=== PATIENT | male | born 1960 | race Caucasian/White ===

== ENCOUNTER 2021-05-15 08:08 | Inpatient (IN) | payer BC, MEDICAID, SELFPAY ==
[2021-05-15] VITALS (8 sets, daily range): BP systolic 132–165; BP diastolic 65–101; PULSE 84–102; RESP 15–20; TEMP 36.4–37.7; O2SAT 94–97; BMI 27.2
--- NOTE | 2021-05-15 09:21 | ED_ITS ---
HPI - General Adult General Chief complaint: Skin/Abscess/Foreign Body Stated complaint: shingles Time Seen by Provider: 05/15/21 08:54 Source: patient Mode of arrival: ambulatory Limitations: no limitations History of Present Illness HPI narrative: 60 yold male with pmh of stage 4 non-hodgkins lymphoma Nmantle versions presents to the ED for worsening shingles. patient states having shingles on left shoulder since better today that worsened to now to left anterior chest/posterior shoulder/neck/posterior scalp. Patient was a former Friday by Urgent Care will need IV acyclovir but patient wants to [facility] had 20 hour wait so he decided today to come to [facility]. Patient follows up at [facility] with Miguel Chadwick. Patient denies any eye complaints. Patient denies any eye pain or blurry vision. Patient states vision has been normal. Related Data Home Medications Medication Instructions Recorded Confirmed amlodipine 10 mg tablet 10 mg PO DAILY 05/15/21 05/15/21 citalopram 40 mg tablet 40 mg PO DAILY 05/15/21 05/15/21 diphenhydramine HCl 50 mg tablet 50 mg PO BEDTIME PRN 05/15/21 05/15/21 valacyclovir 1 gram tablet 1,000 mg PO TID 05/15/21 05/15/21 zanubrutinib 80 mg capsule 320 mg PO DAILY 05/15/21 05/15/21 (Brukinsa) Allergies Allergy/AdvReac Type Severity Reaction Status Date / Time No Known Allergies Allergy Verified 05/15/21 08:54 Review of Systems Review of Systems: Yes all other systems are reviewed and are negative Constitutional: Constitutional: Reports as per HPI and Reports no additional constitutional complaints Eyes: Eyes: Reports as per HPI and Reports no additional eye complaints ENT: Reports system reviewed and no additional complaints, except as documented and Reports as per HPI Cardiovascular: Cardiovascular: Reports as per HPI and Reports no additional cardiovascular complaints Respiratory: Respiratory: Reports as per HPI and Reports no additional respiratory complaints Gastrointestinal: Gastrointestinal: Reports as per HPI and Reports no additional gastrointestinal complaints Genitourinary: Genitourinary: Reports no additional male genitourinary complaints and Reports as per HPI Musculoskeletal: Musculoskeletal: Reports no additional musculoskeletal complaints and Reports as per HPI Integumentary/Breasts: Skin/Breast: Reports system reviewed and no additional complaints, except as docu and Reports as per HPI Comments: shingles Psychiatric: Psychiatric: Reports no additional psychiatric complaints and Reports as per HPI [facility] Past Medical History Medical History (Updated 05/15/21 @ 14:00 by AARON Agustin) Depression HTN (hypertension) Mantle cell lymphoma Non-Hodgkins lymphoma Surgical History (Updated 05/15/21 @ 13:08 by Harmeet Rivera MD) H/O hernia repair H/O removal of cyst Social History Social History Advance Directives: No Advance Directives Information Provided: No Physical Exam Vital Signs: Vital Signs: Last Vital Signs Temp 97.6 F 05/15/21 11:44 Pulse 94 05/15/21 11:44 Resp 16 05/15/21 12:10 BP 165/101 H 05/15/21 11:44 Pulse Ox 97 05/15/21 11:44 Body Mass Index 27.2 Const: General: cooperative, healthy appearing, comfortable, no acute distress, well developed, alert, awake and Physically active Orientation/consciousness: patient oriented x3 HENMT: Other: Ear exam is normal and negative for Ana Maria Galo syndrome Head: Yes normal to inspection, Yes No palpable skull fracture present, Yes normocephalic, Yes atraumatic and No abrasion Eyes: General: appearance normal, both eyes and all related structures Neck: Neck: Yes normal visual inspection, Yes full ROM, Yes no lymphadenopathy, Yes no meningeal signs, Yes trachea midline, Yes supple, No anterior neck swelling and No tender Chest: Chest palpation & inspection: normal inspection of the chest and normal palpation of entire chest wall Resp: Effort & Inspection: normal respiratory effort and able to speak in complete sentences Auscultation: clear to auscultation bilaterally Cardio: Jugular venous distension: no JVD Heart sounds: S1 normal heart sound present and S2 normal heart sound present GI: Inspection: Yes normal to inspection and No abdominal wall ecchymosis Palpation (GI): Soft to palpation, not firm, nontender, no guarding and not rigid : General: No CVA tenderness and Yes no CVA tenderness Back/Spine/Pelvis: Back: no CVA tenderness, No CVA tenderness and No back tenderness Skin: Other: Neuro: General: patient oriented x3, gait normal, no meningeal signs and CN's II-XI intact bilaterally Cranial nerves: Yes CN's II-XII intact bilaterally Extrem: General: Yes normal to inspection and Yes full ROM Psych: Appearance: grossly normal, well kempt and not disheveled Course Course Course Narrative: Will do lab work. We will check eye make sure there is no dendrites although patient denies any visual complaints and does not have any actual zoster on the face or nose. Will do labs. Possibly contact infectious disease specialist Reevaluation(s) Reevaluation #1: Both eyes were evaluated and negative for dendrites. Tetracaine then fluorescein dye was used. Presently not suspecting herpes zoster in the eye. Will contact Dr. Quiroz Time: 09:52 Reevaluation #2: Still waiting to hear from Dr. Mallorie albarado. Spoke with Dr. hinds though recommended Time: 10:42 Reevaluation #3: Spoke with ID Dr. Mallorie Sánchez who sttes patient should be admitted. Time: 11:24 Medical Decision Making MDM Narrative Medical decision making narrative: Herpes zoster Lab Data Result diagrams: 05/15/21 10:07 05/15/21 10:07 Labs: Lab Results 05/15/21 05/15/21 05/15/21 Range/Units 10:07 10:07 10:07 WBC 4.7 L (4.8-10.8) X10*3/uL RBC 3.99 L (4.60-5.80) X10*6/uL Hgb 13.8 L (14.0-18.0) g/dl Hct 40.7 L (42.0-52.0) % MCV 102.0 H (80.0-98.0) fL MCH 34.6 H (27.0-33.0) pg MCHC 33.9 (31.0-36.0) g/dl RDW 14.3 (11.0-16.0) % Plt Count 116 L (160-400) X10*3/uL MPV 10.1 (9.4-12.4) fL Immature Gran % (Auto) 0.6 H (0.0-0.4) % Neut % (Auto) 68.2 (45-73) % Lymph % (Auto) 13.9 L (20-40) % [place] % (Auto) 16.2 H (2-11) % Eos % (Auto) 0.9 (0-4) % Baso % (Auto) 0.2 (0-2) % Lymph # (Auto) 0.7 L (1.2-4.9) X10*3/uL [place] # (Auto) 0.8 (0.1-1.2) X10*3/uL Eos # (Auto) 0.0 (0.0-0.4) X10*3/uL Baso # (Auto) 0.0 (0.0-0.2) X10*3/uL Abs Immat Gran (auto) 0.03 (0.00-0.03) X10*3/uL Absolute Neuts (auto) 3.2 (2.0-8.3) x10*3/uL Absolute Nucleated RBC 0.000 (0.0-0.012) X10*3/uL Nucleated RBC % (auto) 0.0 (0.0-0.2) /100WBC PT 10.3 (9.9-13.0) SEC INR 0.9 (0.9-1.1) APTT 30.6 (24.1-38.0) SEC Sodium 139 (135-145) mmol/L Potassium 4.3 (3.3-5.1) mmol/L Chloride 108 (96-108) mmol/L Carbon Dioxide 22 (22-29) mmol/L Anion Gap 13 (12-20) BUN 15 (9-16) mg/dL Creatinine 0.88 (0.5-1.4) mg/dL Estim Creat Clear Calc 93.3 Estimated GFR > 60 Random Glucose 103 (60-115) mg/dL Calcium 10.6 H (8.4-10.2) mg/dL Total Bilirubin 0.6 (0.0-1.0) mg/dL AST 21 (5-37) U/L ALT 19 (0-40) U/L Alkaline Phosphatase 113 (39-117) U/L Total Protein 6.9 (6.5-8.0) g/dL Albumin 4.3 (3.5-5.0) g/dL COVID-19 (LESLY) (Negative) COVID-19 Clin Com 05/15/21 Range/Units 11:45 WBC (4.8-10.8) X10*3/uL RBC (4.60-5.80) X10*6/uL Hgb (14.0-18.0) g/dl Hct (42.0-52.0) % MCV (80.0-98.0) fL MCH (27.0-33.0) pg MCHC (31.0-36.0) g/dl RDW (11.0-16.0) % Plt Count (160-400) X10*3/uL MPV (9.4-12.4) fL Immature Gran % (Auto) (0.0-0.4) % Neut % (Auto) (45-73) % Lymph % (Auto) (20-40) % [place] % (Auto) (2-11) % Eos % (Auto) (0-4) % Baso % (Auto) (0-2) % Lymph # (Auto) (1.2-4.9) X10*3/uL [place] # (Auto) (0.1-1.2) X10*3/uL Eos # (Auto) (0.0-0.4) X10*3/uL Baso # (Auto) (0.0-0.2) X10*3/uL Abs Immat Gran (auto) (0.00-0.03) X10*3/uL Absolute Neuts (auto) (2.0-8.3) x10*3/uL Absolute Nucleated RBC (0.0-0.012) X10*3/uL Nucleated RBC % (auto) (0.0-0.2) /100WBC PT (9.9-13.0) SEC INR (0.9-1.1) APTT (24.1-38.0) SEC Sodium (135-145) mmol/L Potassium (3.3-5.1) mmol/L Chloride (96-108) mmol/L Carbon Dioxide (22-29) mmol/L Anion Gap (12-20) BUN (9-16) mg/dL Creatinine (0.5-1.4) mg/dL Estim Creat Clear Calc Estimated GFR Random Glucose (60-115) mg/dL Calcium (8.4-10.2) mg/dL Total Bilirubin (0.0-1.0) mg/dL AST (5-37) U/L ALT (0-40) U/L Alkaline Phosphatase (39-117) U/L Total Protein (6.5-8.0) g/dL Albumin (3.5-5.0) g/dL COVID-19 (LESLY) Negative (Negative) COVID-19 Clin Com See Note Discharge Plan Discharge Clinical Impression: Herpes zoster Patient Disposition: Admitted As Inpatient
[2021-05-15] MEDS: Fluorescein Sodium STRIP 1 STRIP EYE-BOTH (10:08)
[2021-05-15] MEDS: Tetracaine HCl/PF 0.5% Oph Sol 4 ML DROPS 1 DROP EYE-BOTH (10:08)
[2021-05-15 10:14] LABS: MANUAL DIFF FLAG NO
[2021-05-15 10:20] LABS: Basophils Percent Auto 0.2 % (0-2); Eosinophils Percent Auto 0.9 % (0-4); Hematocrit 40.7 % (42.0-52.0); Hemoglobin 13.8 g/dl (14.0-18.0); Imm Gran Abs Auto 0.03 X10*3/uL (0.00-0.03); Imm Gran Pct Auto 0.6 % (0.0-0.4); Lymphocytes Absolute Auto 0.7 X10*3/uL (1.2-4.9); Lymphocytes Percent Auto 13.9 % (20-40); Mean Corpuscular HGB Conc 33.9 g/dl (31.0-36.0); Mean Corpuscular Hemoglobin 34.6 pg (27.0-33.0); Mean Platelet Volume 10.1 fL (9.4-12.4); Monocytes Absolute Auto 0.8 X10*3/uL (0.1-1.2); Monocytes Percent Auto 16.2 % (2-11); Neutrophils Absolute Auto 3.2 x10*3/uL (2.0-8.3); Neutrophils Percent Auto 68.2 % (45-73); Platelet Count 116 X10*3/uL (160-400); Red Blood Count 3.99 X10*6/uL (4.60-5.80); Red Cell Distribution Width 14.3 % (11.0-16.0); White Blood Count 4.7 X10*3/uL (4.8-10.8)
[2021-05-15 10:22] LABS: INTERNATIONAL NORM RATIO 0.9 (0.9-1.1); Prothrombin Time 10.3 SEC (9.9-13.0)
[2021-05-15 10:25] LABS: Partial Thromboplastin Time 30.6 SEC (24.1-38.0)
[2021-05-15 10:44] LABS: Alanine Aminotransferase 19 U/L (0-40); Albumin Level 4.3 g/dL (3.5-5.0); Alkaline Phosphatase 113 U/L (39-117); Anion Gap 13 (12-20); Aspartate Amino Transferase 21 U/L (5-37); Bilirubin Total 0.6 mg/dL (0.0-1.0); Blood Urea Nitrogen 15 mg/dL (9-16); Calcium 10.6 mg/dL (8.4-10.2); Carbon Dioxide 22 mmol/L (22-29); Chloride 108 mmol/L (96-108); Creatinine Clr Calc Pharmacy 93.3; Estimated Glomerular Filt Rate > 60; Glucose Random 103 mg/dL (60-115); Potassium 4.3 mmol/L (3.3-5.1); Sodium 139 mmol/L (135-145); Total Protein 6.9 g/dL (6.5-8.0)
[2021-05-15] MEDS: Morphine Sulfate 4 MG/ML CARTRIDGE IVPUSH (12:10)
[2021-05-15 12:12] LABS: COVID-19 Test Negative (Negative); IDNOW Serial# 08D9AD1C
--- NOTE | 2021-05-15 12:32 | PHA.MEDREC ---
Pharmacy Consult ? Medication Reconciliation Pharmacy has completed the medication reconciliation. Patient able to confirm all medications. He takes Brukinsa which he has in his car if he stays multiple days. Patient takes a sleep aid over the counter that is a clear blue pill, this matches the description of diphenhydramine. Reports he uses a CPAP machine at night which is also in his car. Angelica Richardson, RussellD
--- NOTE | 2021-05-15 12:59 | PM.IMHP ---
History of Present Illness Date of Service: 05/15/21 Chief Complaint: Shingles This is a 60 yo M with a PMH as outlined below who presents to urgent care for complaints of a rash on his neck, LUE, left chest wall. The patient is immuncompromised (being actively treated for Mantle Cell lymphoma at [facility] - s/p stem cell transplant in September 2020). He reports that 05/10 (), he was working outdoors and later in the day, he felt some discomfort on his neck/posterior ear region and thought he had developed a blister. He thought that maybe it was poison Marge and did not make much of it. However, by Friday the rash had begun to Spread and so he sought medical attention. Friday he went called his oncologist and subsequently went to [facility] ED where he awaited 20 hours for admission and so began calling the local hospitals to see what the weight times were like. He subsequently presented here. He reports that was prescribed Acylovir by the [facility] providers and has taken it for the last 24 hours, but reports the rash is continuing to spread. He reports discomfort more than pain. He denies any fevers or chills. In regards to his cancer diagnosis, reports he underwent stem cell transplant in September 2020 and is on oral chemotherapuetic agent currently. He reports he has been in contact with his oncology team at [facility] and has been told to hold his cancer meds until his zoster resolves. Upon arrival to the ED, patient was noted to have vesicular rash (see pictures below). He underwent ocular testing to rule out herpes ophthalmicus in the ED. His case was discussed with ID and he will be admitted for further treatment. Review of Systems Review of Systems: negative except for HPI [facility] Medical History (Updated 05/15/21 @ 13:08 by Harmeet Rivera MD) Depression HTN (hypertension) Mantle cell lymphoma Non-Hodgkins lymphoma Pertinent family history: reports no significant past family history Surgical History (Updated 05/15/21 @ 13:08 by Harmeet Rivera MD) H/O hernia repair H/O removal of cyst Social History Advance Directives: No Advance Directives Information Provided: No Meds Allergies Allergy/AdvReac Type Severity Reaction Status Date / Time No Known Allergies Allergy Verified 05/15/21 08:54 Active Medications: Current Medications Acetaminophen (Acetaminophen 325 Mg Tablet) 650 mg PO Q6H PRN PRN Reason: Pain, Mild (Pain Scale 1-3) Enoxaparin Sodium (Enoxaparin Sodium 40 Mg/0.4 Ml Syringe) 40 mg SUBCUT Q24H CLARISA Acyclovir Sodium 782.73 mg/ (Sodium Chloride) 115.6546 mls @ 115.655 mls/hr IV Q8H [facility] Morphine Sulfate (Morphine Sulfate 2 Mg/Ml Cartridge) 2 mg IVPUSH Q4H PRN; Protocol PRN Reason: Pain, Severe (Pain Scale 7-10) Ondansetron HCl (Ondansetron Hcl 4 Mg/2 Ml Vial) 4 mg IVPUSH Q8H PRN PRN Reason: Nausea and Vomiting Pharmacy Consult (Consult Rx Perform Med Rec) 1 each MISCELLANE ONCE PRN PRN Reason: Consult order Sodium Chloride (0.9 % Sodium Chloride Flush 3 Ml Syringe) 3 ml IVFLUSH QSHIFT [facility] Home Medications Medication Instructions Recorded Confirmed Last Taken Type amlodipine 10 mg tablet 10 mg PO DAILY 05/15/21 05/15/21 05/15/21 History citalopram 40 mg tablet 40 mg PO DAILY 05/15/21 05/15/21 05/15/21 History diphenhydramine HCl 50 mg tablet 50 mg PO BEDTIME PRN 05/15/21 05/15/21 Unknown History valacyclovir 1 gram tablet 1,000 mg PO TID 05/15/21 05/15/21 05/15/21 History zanubrutinib 80 mg capsule 320 mg PO DAILY 05/15/21 05/15/21 05/15/21 History (Jaiden) Physical Exam Vital Signs and Narrative: Vital Signs: Last Vital Signs Temp 97.6 F 05/15/21 11:44 Pulse 94 05/15/21 11:44 Resp 16 05/15/21 12:10 BP 165/101 H 05/15/21 11:44 Pulse Ox 97 05/15/21 11:44 Body Mass Index 27.2 Const: Other: Constitutional - Awake and Alert, No apparent distress Eyes - PERRLA, EOMI Cardiovascular - S1S2, RRR, No edema Respiratory - Normal lung expansion, Normal respiratory effort, No respiratory distress, CTA bilaterally Gastrointestinal - NT / ND; +BS; No rebound or guarding - No CVA tenderness Extremities - no calf tenderness bilaterally, no swelling Musculoskeletal - Normal inspection, normal ROM Skin - Warm/Dry -- see pictures below Neurological - Alert & oriented x3, No focal deficit Psychological - Appropriate affect Skin: Other: Results Labs CBC and Chem 7: 05/15/21 10:07 05/15/21 10:07 Labs: Laboratory Results - last 24 hr 05/15/21 05/15/21 05/15/21 10:07 10:07 10:07 MCV 102.0 H MCH 34.6 H MCHC 33.9 RDW 14.3 Plt Count 116 L MPV 10.1 Immature Gran % (Auto) 0.6 H Neut % (Auto) 68.2 Lymph % (Auto) 13.9 L [place] % (Auto) 16.2 H Eos % (Auto) 0.9 Baso % (Auto) 0.2 Lymph # (Auto) 0.7 L [place] # (Auto) 0.8 Eos # (Auto) 0.0 Baso # (Auto) 0.0 Abs Immat Gran (auto) 0.03 Absolute Neuts (auto) 3.2 Absolute Nucleated RBC 0.000 Nucleated RBC % (auto) 0.0 PT 10.3 INR 0.9 APTT 30.6 Anion Gap 13 Estim Creat Clear Calc 93.3 Estimated GFR > 60 Random Glucose 103 Calcium 10.6 H Total Bilirubin 0.6 AST 21 ALT 19 Alkaline Phosphatase 113 Total Protein 6.9 Albumin 4.3 COVID-19 (LESLY) COVID-19 Clin Com 05/15/21 11:45 MCV MCH MCHC RDW Plt Count MPV Immature Gran % (Auto) Neut % (Auto) Lymph % (Auto) [place] % (Auto) Eos % (Auto) Baso % (Auto) Lymph # (Auto) [place] # (Auto) Eos # (Auto) Baso # (Auto) Abs Immat Gran (auto) Absolute Neuts (auto) Absolute Nucleated RBC Nucleated RBC % (auto) PT INR APTT Anion Gap Estim Creat Clear Calc Estimated GFR Random Glucose Calcium Total Bilirubin AST ALT Alkaline Phosphatase Total Protein Albumin COVID-19 (LESLY) Negative COVID-19 Clin Com See Note Assessment and Plan (1) Herpes zoster: Status: Acute This is a 60 yo M with a history of Mantle Cell lymphoma, currently on oral chemo, HTN, Depression/Anxiety who presents to the hospital with worsening rash consistent with Herpes Zoster in an immunocompromised patient. He will be admitted for IV antivirals. 1. Herpes Zoster -- in an immunocompromised patient Did not respond to oral anti-virals; Furthermore, lesions appear to be at different stages, with some crusting of the lesion behind his ear Despite his rash starting > 72 hours, there appear to be newer lesions. Furthermore, do to active treatment for cancer, he is at risk for disseminated disease. Acyclovir 10mg/kg q8 hours Infectious disease consult Airborne and contract precautions until evaluated by ID Monitor renal function on acyclovir 2. HTN slightly elevated; continue home norvasc and titrate dose 3. Anxiety/Depression continue his baseline meds 4. Mantle Cell lymphoma On Brukinsa -- will be on hold for the time being 5. Thrombocytopenia mild monitor Full Code DVT pptx -- high risk, will use Lovenox Quality Stroke Does the patient have a stroke diagnosis?: No VTE Prior VTE?: No VTE Risk Level:: Medical - moderate - high VTE Device Contraindication: Treatment Not Indicated VTE Drug Contraindication: N/A - Med Ordered
[2021-05-15] MEDS: Lactated Ringers 1,000 ML 100 ML IVCONT ×2 (13:39→23:31)
[2021-05-15] MEDS: Enoxaparin Sodium 40 MG/0.4 ML SYRINGE SUBCUT (15:21)
[2021-05-15] MEDS: Acetaminophen 325 MG TABLET 650 MG PO (17:50)
[2021-05-15] MEDS: ondansetron HCL 4 MG/2 ML VIAL IVPUSH (17:53)
--- NOTE | 2021-05-15 20:37 | MHC.CM.PN ---
CM met with admitted patient with bed assignment pending. A&Ox3. No IMM necessary. Pt employed. Lives with . Uses no DME or services. Fully vaccinated with Moderna. Severe stuttering. Uses CPAP for sleep apnea. Has his own machine.Pt currently on chemptherapy for stage 4 non-hodgkins lymphoma, had stem cell transplant 09/2020, had recurrence, and is now on oral chemotherapy. Followed at [facility]. Pt has shingles. D/C plan is home without services. Transportation home by . CM to follow for d/c needs.
--- NOTE | 2021-05-15 21:56 | PC.NURSE ---
Pt rang call [facility] requesting pain meds. This rn to medicate per MAR with PRN pain meds. Pt also requesting sleeping pill, reports he takes [employer] sleep aid at home, and believes it to be generic benadryl. This RN TT Dr Bush with pt's request. Pt resting in stretcher in low locked position, rails raised, call [facility] within reach.
[2021-05-15] MEDS: Morphine Sulfate 2 MG/ML CARTRIDGE IVPUSH (21:57)
[2021-05-15] MEDS: diphenhydrAMINE HCL 25 MG TABLET 50 MG PO (22:08)
--- NOTE | 2021-05-15 22:18 | PC.NURSE ---
Pt inquiring about pt's chemo pills from home. This RN called pharmacy who states pt's med needs to be ordered from pharmacy and pt to hold onto his own meds until he is on the medsurg floor. This RN informed provider who reports she ordered meds. This RN to notify pharmacy.
--- NOTE | 2021-05-15 22:21 | PC.NURSE ---
Per Naomi in pharmacy, pharm to come to dept to get pt's home chemo med to verify and hold in pharmacy until dose is due in AM
[2021-05-16] VITALS (7 sets, daily range): BP systolic 139–159; BP diastolic 67–87; PULSE 75–104; RESP 16–18; TEMP 36.8–37.9; O2SAT 93–98
[2021-05-16] MEDS: Acetaminophen 325 MG TABLET 650 MG PO (04:33)
[2021-05-16 05:45] LABS: Hemoglobin 11.3 g/dl (14.0-18.0); Mean Corpuscular HGB Conc 33.2 g/dl (31.0-36.0); Mean Corpuscular Hemoglobin 34.3 pg (27.0-33.0); Mean Corpuscular Volume 103.3 fL (80.0-98.0); Mean Platelet Volume 9.9 fL (9.4-12.4); Red Blood Count 3.29 X10*6/uL (4.60-5.80); Red Cell Distribution Width 14.5 % (11.0-16.0); White Blood Count 3.9 X10*3/uL (4.8-10.8)
[2021-05-16 05:51] LABS: Platelet Count 92 X10*3/uL (160-400)
[2021-05-16 05:59] LABS: Anion Gap 9 (12-20); Blood Urea Nitrogen 10 mg/dL (9-16); Calcium 9.4 mg/dL (8.4-10.2); Carbon Dioxide 26 mmol/L (22-29); Chloride 108 mmol/L (96-108); Creatinine Clr Calc Pharmacy 98.9; Estimated Glomerular Filt Rate > 60; Glucose Random 96 mg/dL (60-115); Potassium 3.9 mmol/L (3.3-5.1); Sodium 139 mmol/L (135-145)
[2021-05-16] MEDS: amLODIPine Besylate 10 MG TABLET PO (08:04)
[2021-05-16] MEDS: Escitalopram Oxalate 20 MG TABLET PO (08:04)
[2021-05-16] MEDS: 0.9 % Sodium Chloride Flush 3 ML SYRINGE IVFLUSH (08:05)
[2021-05-16] MEDS: Lactated Ringers 1,000 ML 100 ML IVCONT ×3 (08:05→20:39)
--- NOTE | 2021-05-16 09:36 | HO.PM.IMPN ---
Subjective Subjective Date of Service: 05/16/21 Interval History: seen and examined this Am no complaints morphine not helping much for pain, requesting NSAIDs Review of Systems negative except HPI Physical Exam Vital Signs: Vital Signs: Last Vital Signs Temp 98.3 F 05/16/21 08:00 Pulse 75 05/16/21 08:00 Resp 18 05/16/21 08:00 BP 139/76 05/16/21 08:00 Pulse Ox 93 05/16/21 08:00 Body Mass Index 27.2 Const: Other: General - no acute distress, appears comfortable Cardiovascular - regular rate and rhythm, S1-S2 Lungs - normal respiratory effort, clear to auscultation bilaterally, no wheezing Abdomen - soft, nontender, no rebound or guarding Extremities - no edema bilaterally Neuro - awake and alert, no focal deficits Skin - no new lesions appreciated Objective Data Active Medications Acetaminophen (Acetaminophen 325 Mg Tablet) 650 mg PO Q6H PRN PRN Reason: Pain, Mild (Pain Scale 1-3) Last Admin: 05/16/21 04:33 Dose: 650 mg Documented by: GISELLE Amlodipine Besylate (Amlodipine Besylate 10 Mg Tablet) 10 mg PO DAILY [facility]; Protocol Last Admin: 05/16/21 08:04 Dose: 10 mg Documented by: NADIA Diphenhydramine HCl (Diphenhydramine Hcl 25 Mg Tablet) 50 mg PO BEDTIME PRN PRN Reason: Insomnia Last Admin: 05/15/21 22:08 Dose: 50 mg Documented by: MEL Enoxaparin Sodium (Enoxaparin Sodium 40 Mg/0.4 Ml Syringe) 40 mg SUBCUT Q24H [facility] Last Admin: 05/15/21 15:21 Dose: 40 mg Documented by: RAMA Escitalopram Oxalate (Escitalopram Oxalate 20 Mg Tablet) 20 mg PO DAILY [facility] Last Admin: 05/16/21 08:04 Dose: 20 mg Documented by: NADIA Acyclovir Sodium 800 mg/ (Sodium Chloride) 266 mls @ 266 mls/hr IV Q8H [facility] Last Infusion: 05/16/21 04:48 Dose: 0 mls/hr Documented by: GISELLE Lactated Ringer's (Lr) 1,000 mls @ 100 mls/hr IVCONT .Q10H [facility] Last Admin: 05/16/21 08:05 Dose: 100 mls/hr Documented by: NADIA Morphine Sulfate (Morphine Sulfate 2 Mg/Ml Cartridge) 2 mg IVPUSH Q4H PRN; Protocol PRN Reason: Pain, Severe (Pain Scale 7-10) Last Admin: 05/15/21 21:57 Dose: 2 mg Documented by: MEL Patient Own Medication ( Zanubrutinib 80 Mg) 4 each PO DAILY CLARISA Ondansetron HCl (Ondansetron Hcl 4 Mg/2 Ml Vial) 4 mg IVPUSH Q8H PRN PRN Reason: Nausea and Vomiting Last Admin: 05/15/21 17:53 Dose: 4 mg Documented by: RAMA Pharmacy Consult (Consult Rx Perform Med Rec) 1 each MISCELLANE ONCE PRN PRN Reason: Consult order Sodium Chloride (0.9 % Sodium Chloride Flush 3 Ml Syringe) 3 ml IVFLUSH QSHIFT [facility]ARISA Last Admin: 05/16/21 08:05 Dose: 3 ml Documented by: NADIA Labs CBC & Chem 7: 05/16/21 05:18 05/16/21 05:18 Labs: Laboratory Results - last 24 hr 05/15/21 05/15/21 05/15/21 10:07 10:07 10:07 MCV 102.0 H MCH 34.6 H MCHC 33.9 RDW 14.3 Plt Count 116 L MPV 10.1 Immature Gran % (Auto) 0.6 H Neut % (Auto) 68.2 Lymph % (Auto) 13.9 L [place] % (Auto) 16.2 H Eos % (Auto) 0.9 Baso % (Auto) 0.2 Lymph # (Auto) 0.7 L [place] # (Auto) 0.8 Eos # (Auto) 0.0 Baso # (Auto) 0.0 Abs Immat Gran (auto) 0.03 Absolute Neuts (auto) 3.2 Absolute Nucleated RBC 0.000 Nucleated RBC % (auto) 0.0 PT 10.3 INR 0.9 APTT 30.6 Anion Gap 13 Estim Creat Clear Calc 93.3 Estimated GFR > 60 Random Glucose 103 Calcium 10.6 H Total Bilirubin 0.6 AST 21 ALT 19 Alkaline Phosphatase 113 Total Protein 6.9 Albumin 4.3 COVID-19 (LESLY) COVID-19 Clin Com 05/15/21 05/16/21 05/16/21 11:45 05:18 05:18 MCV 103.3 H MCH 34.3 H MCHC 33.2 RDW 14.5 Plt Count 92 L MPV 9.9 Immature Gran % (Auto) Neut % (Auto) Lymph % (Auto) [place] % (Auto) Eos % (Auto) Baso % (Auto) Lymph # (Auto) [place] # (Auto) Eos # (Auto) Baso # (Auto) Abs Immat Gran (auto) Absolute Neuts (auto) Absolute Nucleated RBC 0.000 Nucleated RBC % (auto) 0.0 PT INR APTT Anion Gap 9 L Estim Creat Clear Calc 98.9 Estimated GFR > 60 Random Glucose 96 Calcium 9.4 D Total Bilirubin AST ALT Alkaline Phosphatase Total Protein Albumin COVID-19 (LESLY) Negative COVID-19 Clin Com See Note Assessment and Plan (1) Herpes zoster: Status: Acute Assessment and Plan: This is a 60 yo M with a history of Mantle Cell lymphoma, currently on oral chemo, HTN, Depression/Anxiety who presents to the hospital with worsening rash consistent with Herpes Zoster in an immunocompromised patient. He will be admitted for IV antivirals. 1. Herpes Zoster -- in an immunocompromised patient Continue IV acyclovir - 10mg/KG does not appear to be spreading ID consult continue contact precautions 2. HTN improved, continue home antihypertensives 3. Anxiety/Depression continue his baseline meds 4. Mantle Cell lymphoma d/w the patient, yesterday he has On Brukinsa - curbsided heme, will hold for a few days as the patient is leukopenic 5. Thrombocytopenia 92 today, monitor Full Code DVT pptx -- will hold lovenox in light of drop in h/h, platelets Quality Stroke Does the patient have a stroke diagnosis?: No VTE Prior VTE?: No VTE Risk Level:: Medical - moderate - high VTE Device Contraindication: Treatment Not Indicated VTE Drug Contraindication: N/A - Med Ordered
[2021-05-16] MEDS: Ibuprofen 600 MG TABLET PO ×2 (10:32→20:35)
--- NOTE | 2021-05-16 12:28 | MHC.CM.PN ---
EMR REVIEWED, PER HOPSITALIST PT WILL REMAIN ON IV ANTIVIRALS, PLAN FOR ID CONSULT, ANTIC D/C Friday05/18/21. CM WILL CONT TO FOLLOW D/C NEEDS.
--- NOTE | 2021-05-16 15:18 | PC.NURSE ---
Skin assessment completed. patient has shingles to left neck, upper inner arm, anterior chest and shoulder. No other skin issues noted at this time.
[2021-05-16] MEDS: Enoxaparin Sodium 40 MG/0.4 ML SYRINGE SUBCUT (15:55)
--- NOTE | 2021-05-16 17:23 | P.CNID_ITS ---
History of Present Illness Data of Consult Service Date: 05/16/21 Requesting physician: Harmeet Rivera Primary Care Provider: Dilip Rivera MD [facility] Reason for consult: rash He presents with three days worsening rash left shoulder. It is painful He is s/p stem cell transplant for mantle cell lymphom 09/2020. He had started po Acyclovir but had worsening rash and fever and came to ER. Review of Systems Review of Systems: Yes all other systems are reviewed and are negative PMFSH Past Medical History Medical History Depression HTN (hypertension) Mantle cell lymphoma Non-Hodgkins lymphoma Family History Family history: reviewed and not pertinent Surgical History Surgical History H/O hernia repair H/O removal of cyst Social History Social History Household Members: Spouse Housing: House Do you presently have visiting nurse or other home services: No Patient Tobacco Use Status: Never used Tobacco service: No Current occupational status: employed Meds Allergies Allergy/AdvReac Type Severity Reaction Status Date / Time No Known Allergies Allergy Verified 05/15/21 08:54 Active Medications: Current Medications Acetaminophen (Acetaminophen 325 Mg Tablet) 650 mg PO Q6H PRN PRN Reason: Pain, Mild (Pain Scale 1-3) Last Admin: 05/16/21 04:33 Dose: 650 mg Documented by: Amlodipine Besylate (Amlodipine Besylate 10 Mg Tablet) 10 mg PO DAILY CLARISA; Protocol Last Admin: 05/16/21 08:04 Dose: 10 mg Documented by: Diphenhydramine HCl (Diphenhydramine Hcl 25 Mg Tablet) 50 mg PO BEDTIME PRN PRN Reason: Insomnia Last Admin: 05/15/21 22:08 Dose: 50 mg Documented by: Enoxaparin Sodium (Enoxaparin Sodium 40 Mg/0.4 Ml Syringe) 40 mg SUBCUT Q24H CLARISA Last Admin: 05/16/21 15:55 Dose: 40 mg Documented by: Escitalopram Oxalate (Escitalopram Oxalate 20 Mg Tablet) 20 mg PO DAILY [facility] Last Admin: 05/16/21 08:04 Dose: 20 mg Documented by: Acyclovir Sodium 800 mg/ (Sodium Chloride) 266 mls @ 266 mls/hr IV Q8H [facility] Last Infusion: 05/16/21 13:50 Dose: Infused Documented by: Lactated Ringer's (Lr) 1,000 mls @ 100 mls/hr IVCONT .Q10H [facility] Last Admin: 05/16/21 15:56 Dose: 100 mls/hr Documented by: Ibuprofen (Ibuprofen 600 Mg Tablet) 600 mg PO Q8H PRN PRN Reason: Pain, Moderate (Pain Scale 4-6 Last Admin: 05/16/21 10:32 Dose: 600 mg Documented by: Morphine Sulfate (Morphine Sulfate 2 Mg/Ml Cartridge) 2 mg IVPUSH Q4H PRN; Protocol PRN Reason: Pain, Severe (Pain Scale 7-10) Last Admin: 05/15/21 21:57 Dose: 2 mg Documented by: Patient Own Medication ( Zanubrutinib 80 Mg) 4 each PO DAILY [facility] Last Admin: 05/16/21 10:21 Dose: Not Given Documented by: Ondansetron HCl (Ondansetron Hcl 4 Mg/2 Ml Vial) 4 mg IVPUSH Q8H PRN PRN Reason: Nausea and Vomiting Last Admin: 05/15/21 17:53 Dose: 4 mg Documented by: Pharmacy Consult (Consult Rx Perform Med Rec) 1 each MISCELLANE ONCE PRN PRN Reason: Consult order Sodium Chloride (0.9 % Sodium Chloride Flush 3 Ml Syringe) 3 ml IVFLUSH QSHIFT [facility] Last Admin: 05/16/21 15:56 Dose: Not Given Documented by: Home Medications Medication Instructions Recorded Confirmed Last Taken Type amlodipine 10 mg tablet 10 mg PO DAILY 05/15/21 05/15/21 05/15/21 History citalopram 40 mg tablet 40 mg PO DAILY 05/15/21 05/15/21 05/15/21 History diphenhydramine HCl 50 mg tablet 50 mg PO BEDTIME PRN 05/15/21 05/15/21 Unknown History valacyclovir 1 gram tablet 1,000 mg PO TID 05/15/21 05/15/21 05/15/21 History zanubrutinib 80 mg capsule 320 mg PO DAILY 05/15/21 05/15/21 05/15/21 History (Jaiden) Physical Exam Vital Signs: Vital Signs: Last Vital Signs Temp 99.4 F 05/16/21 11:47 Pulse 79 05/16/21 11:47 Resp 17 05/16/21 11:47 BP 145/84 H 05/16/21 11:47 Pulse Ox 97 05/16/21 11:47 Body Mass Index 27.2 Const: General: cooperative HENMT: Mouth: Normal oral and palatal mucosa present Eyes: General: appearance normal, both eyes and all related structures Resp: Effort & Inspection: normal respiratory effort Cardio: Rate: regular rate Rhythm: regular rhythm GI: Palpation (GI): Soft to palpation and nontender Skin: Other: vesicular rash left chest and arm to elbow one lesion right chest and midline posterior neck Extrem: General: Yes normal to inspection Results Labs CBC & Chem 7: 05/19/21 05:10 05/19/21 05:10 Labs: Short CBC 05/16/21 Range/Units 05:18 WBC 3.9 L (4.8-10.8) X10*3/uL Hgb 11.3 L (14.0-18.0) g/dl Hct 34.0 L (42.0-52.0) % Plt Count 92 L (160-400) X10*3/uL BMP 05/16/21 05:18 Sodium 139 Potassium 3.9 Chloride 108 Carbon Dioxide 26 BUN 10 Creatinine 0.83 Calcium 9.4 D Assessment and Plan (1) Herpes zoster: Status: Acute He has two lesions rather outside dermatomal distribution and is very immunosuppressed with marrow transplant Acyclovir IV until crusted There are no signs of eye or ear involvement Continue respiratory isolation for concern over dissemination of zoster
[2021-05-16] MEDS: ondansetron HCL 4 MG/2 ML VIAL IVPUSH (20:35)
[2021-05-17 03:37] VITALS: BP 132/71; PULSE 89; RESP 18; TEMP 36.3; O2SAT 96
[2021-05-17 07:37] VITALS: BP 141/80; PULSE 94; RESP 18; TEMP 37.8; O2SAT 97
[2021-05-17 08:11] VITALS: BP 141/80; PULSE 94
[2021-05-17] MEDS: 0.9 % Sodium Chloride Flush 3 ML SYRINGE IVFLUSH ×2 (08:11→17:33)
[2021-05-17] MEDS: amLODIPine Besylate 10 MG TABLET PO (08:11)
[2021-05-17] MEDS: Lactated Ringers 1,000 ML 100 ML IVCONT ×2 (08:11→18:48)
[2021-05-17] MEDS: Escitalopram Oxalate 20 MG TABLET PO (08:12)
[2021-05-17] MEDS: ondansetron HCL 4 MG/2 ML VIAL IVPUSH (08:23)
[2021-05-17 08:36] LABS: MANUAL DIFF FLAG NO
[2021-05-17 08:42] LABS: Eosinophils Percent Auto 0.5 % (0-4); Hematocrit 34.5 % (42.0-52.0); Hemoglobin 11.7 g/dl (14.0-18.0); Lymphocytes Absolute Auto 0.6 X10*3/uL (1.2-4.9); Lymphocytes Percent Auto 13.7 % (20-40); Mean Corpuscular HGB Conc 33.9 g/dl (31.0-36.0); Mean Corpuscular Hemoglobin 34.4 pg (27.0-33.0); Mean Corpuscular Volume 101.5 fL (80.0-98.0); Mean Platelet Volume 9.7 fL (9.4-12.4); Monocytes Absolute Auto 0.5 X10*3/uL (0.1-1.2); Monocytes Percent Auto 12.3 % (2-11); Neutrophils Absolute Auto 3.1 x10*3/uL (2.0-8.3); Neutrophils Percent Auto 73.5 % (45-73); Red Cell Distribution Width 14.4 % (11.0-16.0); White Blood Count 4.2 X10*3/uL (4.8-10.8)
[2021-05-17 08:48] LABS: Platelet Count 83 X10*3/uL (160-400)
[2021-05-17 09:35] LABS: Anion Gap 10 (12-20); Blood Urea Nitrogen 11 mg/dL (9-16); Calcium 9.6 mg/dL (8.4-10.2); Carbon Dioxide 25 mmol/L (22-29); Chloride 108 mmol/L (96-108); Creatinine Clr Calc Pharmacy 103.9; Estimated Glomerular Filt Rate > 60; Glucose Random 89 mg/dL (60-115); Potassium 3.7 mmol/L (3.3-5.1); Sodium 139 mmol/L (135-145)
--- NOTE | 2021-05-17 10:18 | P.PNIM_ITS ---
Subjective Subjective Date of Service: 05/17/21 Interval History: seen and examined this Am reports some nausea this AM and 2 episodes of loose stools since yesterday denies abdominal pain Review of Systems negative except HPI Physical Exam Vital Signs: Vital Signs: Last Vital Signs Temp 100.0 F 05/17/21 07:37 Pulse 94 05/17/21 08:11 Resp 18 05/17/21 07:37 BP 141/80 H 05/17/21 08:11 Pulse Ox 97 05/17/21 07:37 Body Mass Index 27.2 Const: Other: General - no acute distress, appears comfortable Cardiovascular - regular rate and rhythm, S1-S2 Lungs - normal respiratory effort, clear to auscultation bilaterally, no wheezing Abdomen - soft, nontender, no rebound or guarding Extremities - no edema bilaterally Neuro - awake and alert, no focal deficits Skin - lesions slowly starting to crust Objective Data Active Medications Acetaminophen (Acetaminophen 325 Mg Tablet) 650 mg PO Q6H PRN PRN Reason: Pain, Mild (Pain Scale 1-3) Last Admin: 05/16/21 04:33 Dose: 650 mg Documented by: GISELLE Amlodipine Besylate (Amlodipine Besylate 10 Mg Tablet) 10 mg PO DAILY CL[facility]ISA; Protocol Last Admin: 05/17/21 08:11 Dose: 10 mg Documented by: CRISTINA Diphenhydramine HCl (Diphenhydramine Hcl 25 Mg Tablet) 50 mg PO BEDTIME PRN PRN Reason: Insomnia Last Admin: 05/15/21 22:08 Dose: 50 mg Documented by: MEL Enoxaparin Sodium (Enoxaparin Sodium 40 Mg/0.4 Ml Syringe) 40 mg SUBCUT Q24H [facility] Last Admin: 05/16/21 15:55 Dose: 40 mg Documented by: SUZE Escitalopram Oxalate (Escitalopram Oxalate 20 Mg Tablet) 20 mg PO DAILY [facility] Last Admin: 05/17/21 08:12 Dose: 20 mg Documented by: CRISTINA Acyclovir Sodium 800 mg/ (Sodium Chloride) 266 mls @ 266 mls/hr IV Q8H [facility] Last Infusion: 05/17/21 05:35 Dose: 0 mls/hr Documented by: EUGENE Lactated Ringer's (Lr) 1,000 mls @ 100 mls/hr IVCONT .Q10H [facility] Last Admin: 05/17/21 08:11 Dose: 100 mls/hr Documented by: CRISTINA Ibuprofen (Ibuprofen 600 Mg Tablet) 600 mg PO Q8H PRN PRN Reason: Pain, Moderate (Pain Scale 4-6 Last Admin: 05/16/21 20:35 Dose: 600 mg Documented by: EUGENE Morphine Sulfate (Morphine Sulfate 2 Mg/Ml Cartridge) 2 mg IVPUSH Q4H PRN; Prot ocol PRN Reason: Pain, Severe (Pain Scale 7-10) Last Admin: 05/15/21 21:57 Dose: 2 mg Documented by: MEL Patient Own Medication ( Zanubrutinib 80 Mg) 4 each PO DAILY [facility] Last Admin: 05/16/21 10:21 Dose: Not Given Documented by: NADIA Non-Admin Reason: hold order Ondansetron HCl (Ondansetron Hcl 4 Mg/2 Ml Vial) 4 mg IVPUSH Q8H PRN PRN Reason: Nausea and Vomiting Last Admin: 05/17/21 08:23 Dose: 4 mg Documented by: CRISTINA Pharmacy Consult (Consult Rx Perform Med Rec) 1 each MISCELLANE ONCE PRN PRN Reason: Consult order Sodium Chloride (0.9 % Sodium Chloride Flush 3 Ml Syringe) 3 ml IVFLUSH QSHIFT [facility] Last Admin: 05/17/21 08:11 Dose: 3 ml Documented by: CRISTINA Labs CBC & Chem 7: 05/17/21 08:27 05/17/21 08:27 Labs: Laboratory Results - last 24 hr 05/17/21 05/17/21 08:27 08:27 MCV 101.5 H MCH 34.4 H MCHC 33.9 RDW 14.4 Plt Count 83 L MPV 9.7 Immature Gran % (Auto) 0.0 Neut % (Auto) 73.5 H Lymph % (Auto) 13.7 L [place] % (Auto) 12.3 H Eos % (Auto) 0.5 Baso % (Auto) 0.0 Lymph # (Auto) 0.6 L [place] # (Auto) 0.5 Eos # (Auto) 0.0 Baso # (Auto) 0.0 Abs Immat Gran (auto) 0.00 Absolute Neuts (auto) 3.1 Absolute Nucleated RBC 0.000 Nucleated RBC % (auto) 0.0 Anion Gap 10 L Estim Creat Clear Calc 103.9 Estimated GFR > 60 Random Glucose 89 Calcium 9.6 Assessment and Plan (1) Herpes zoster: Status: Acute Assessment and Plan: This is a 60 yo M with a history of Mantle Cell lymphoma, currently on oral chemo, HTN, Depression/Anxiety who presents to the hospital with worsening rash consistent with Herpes Zoster in an immunocompromised patient. He will be admitted for IV antivirals. 1. Herpes Zoster -- in an immunocompromised patient Continue IV acyclovir - 10mg/KG ID consult appreciated -- to continue IV acyclovir until crusted over continue contact/airborne precautions 2. HTN improved, continue home antihypertensives 3. Anxiety/Depression continue his baseline meds 4. Mantle Cell lymphoma hold Brukinsa 5. Thrombocytopenia monitor Full Code DVT pptx -- mechanical due to low platelets Quality Stroke Does the patient have a stroke diagnosis?: No VTE Prior VTE?: No VTE Risk Level:: Medical - moderate - high VTE Device Contraindication: Treatment Not Indicated VTE Drug Contraindication: N/A - Med Ordered
[2021-05-17] MEDS: Omeprazole 20 MG CAPSULE.DR PO (11:56)
[2021-05-17 12:00] VITALS: BP 164/80; PULSE 88; RESP 17; TEMP 37.2; O2SAT 96
[2021-05-17 16:00] VITALS: BP 129/74; PULSE 95; RESP 18; TEMP 37.2; O2SAT 95
[2021-05-17] MEDS: Enoxaparin Sodium 40 MG/0.4 ML SYRINGE SUBCUT (17:33)
[2021-05-17] MEDS: Acetaminophen 325 MG TABLET 650 MG PO (17:34)
[2021-05-17 19:07] VITALS: BP 133/77; PULSE 81; RESP 18; TEMP 36.6; O2SAT 95
[2021-05-17] MEDS: diphenhydrAMINE HCL 25 MG TABLET 50 MG PO (20:10)
[2021-05-18] VITALS (8 sets, daily range): BP systolic 131–153; BP diastolic 77–85; PULSE 69–84; RESP 14–18; TEMP 36.3–37.1; O2SAT 94–100
[2021-05-18] MEDS: Morphine Sulfate 2 MG/ML CARTRIDGE IVPUSH (01:11)
[2021-05-18 05:43] LABS: MANUAL DIFF FLAG NO
[2021-05-18 05:46] LABS: Eosinophils Absolute Auto 0.1 X10*3/uL (0.0-0.4); Eosinophils Percent Auto 1.6 % (0-4); Hematocrit 32.7 % (42.0-52.0); Hemoglobin 10.8 g/dl (14.0-18.0); Imm Gran Abs Auto 0.01 X10*3/uL (0.00-0.03); Imm Gran Pct Auto 0.3 % (0.0-0.4); Lymphocytes Absolute Auto 0.7 X10*3/uL (1.2-4.9); Lymphocytes Percent Auto 21.6 % (20-40); Mean Corpuscular Hemoglobin 34.1 pg (27.0-33.0); Mean Corpuscular Volume 103.2 fL (80.0-98.0); Mean Platelet Volume 9.9 fL (9.4-12.4); Monocytes Absolute Auto 0.4 X10*3/uL (0.1-1.2); Monocytes Percent Auto 11.6 % (2-11); Neutrophils Absolute Auto 2.1 x10*3/uL (2.0-8.3); Neutrophils Percent Auto 64.9 % (45-73); Red Blood Count 3.17 X10*6/uL (4.60-5.80); White Blood Count 3.2 X10*3/uL (4.8-10.8)
[2021-05-18 06:05] LABS: Platelet Count 87 X10*3/uL (160-400)
[2021-05-18] MEDS: Omeprazole 20 MG CAPSULE.DR PO (06:10)
[2021-05-18 06:11] LABS: Anion Gap 10 (12-20); Blood Urea Nitrogen 9 mg/dL (9-16); Calcium 9.3 mg/dL (8.4-10.2); Carbon Dioxide 26 mmol/L (22-29); Chloride 107 mmol/L (96-108); Creatinine Clr Calc Pharmacy 112.5; Estimated Glomerular Filt Rate > 60; Glucose Random 88 mg/dL (60-115); Potassium 3.5 mmol/L (3.3-5.1); Sodium 139 mmol/L (135-145)
--- NOTE | 2021-05-18 09:13 | HO.PM.IMPN ---
Subjective Subjective Date of Service: 05/18/21 Interval History: seen and examined this Am denies n/v/d this AM denies fevers pain improving reports no new lesions Review of Systems negative except HPI Physical Exam Vital Signs: Vital Signs: Last Vital Signs Temp 98.0 F 05/18/21 07:46 Pulse 78 05/18/21 07:46 Resp 18 05/18/21 07:46 BP 136/77 05/18/21 07:46 Pulse Ox 97 05/18/21 07:46 Body Mass Index 27.2 Const: Other: General - no acute distress, appears comfortable Cardiovascular - regular rate and rhythm, S1-S2 Lungs - normal respiratory effort, clear to auscultation bilaterally, no wheezing Abdomen - soft, nontender, no rebound or guarding Extremities - no edema bilaterally Neuro - awake and alert, no focal deficits Skin - no new lesions appreciated Objective Data Active Medications Acetaminophen (Acetaminophen 325 Mg Tablet) 650 mg PO Q6H PRN PRN Reason: Pain, Mild (Pain Scale 1-3) Last Admin: 05/17/21 17:34 Dose: 650 mg Documented by: CRISTINA Amlodipine Besylate (Amlodipine Besylate 10 Mg Tablet) 10 mg PO DAILY CLARISA; Protocol Last Admin: 05/17/21 08:11 Dose: 10 mg Documented by: CRISTINA Diphenhydramine HCl (Diphenhydramine Hcl 25 Mg Tablet) 50 mg PO BEDTIME PRN PRN Reason: Insomnia Last Admin: 05/17/21 20:10 Dose: 50 mg Documented by: EUGENE Enoxaparin Sodium (Enoxaparin Sodium 40 Mg/0.4 Ml Syringe) 40 mg SUBCUT Q24H [facility] Last Admin: 05/17/21 17:33 Dose: 40 mg Documented by: CRISTINA Escitalopram Oxalate (Escitalopram Oxalate 20 Mg Tablet) 20 mg PO DAILY [facility] Last Admin: 05/17/21 08:12 Dose: 20 mg Documented by: CRISTINA Acyclovir Sodium 800 mg/ (Sodium Chloride) 266 mls @ 266 mls/hr IV Q8H [facility]S [facility]CLUDE 234 BEDS AT THE [facility] Last Infusion: 05/18/21 06:06 Dose: 0 mls/hr Documented by: EUGENE Lactated Ringer's (Lr) 1,000 mls @ 100 mls/hr IVCONT .Q10H [facility] Last Admin: 05/17/21 18:48 Dose: 100 mls/hr Documented by: CRISTINA Ibuprofen (Ibuprofen 600 Mg Tablet) 600 mg PO Q8H PRN PRN Reason: Pain, Moderate (Pain Scale 4-6 Last Admin: 05/16/21 20:35 Dose: 600 mg Documented by: EUGENE Morphine Sulfate (Morphine Sulfate 2 Mg/Ml Cartridge) 2 mg IVPUSH Q4H PRN; Protocol PRN Reason: Pain, Severe (Pain Scale 7-10) Last Admin: 05/18/21 01:11 Dose: 2 mg Documented by: EUGENE Patient Own Medication ( Zanubrutinib 80 Mg) 4 each PO DAILY COUNTS [facility]CLUDE 234 BEDS AT THE [facility] Last Admin: 05/16/21 10:21 Dose: Not Given Documented by: NADIA Non-Admin Reason: hold order Omeprazole (Omeprazole 20 Mg Capsule.Dr) 20 mg PO DAILY@0630 COUNTS INCLUDE 234 BEDS AT THE [facility] Last Admin: 05/18/21 06:10 Dose: 20 mg Documented by: EUGENE Ondansetron HCl (Ondansetron Hcl 4 Mg/2 Ml Vial) 4 mg IVPUSH Q8H PRN PRN Reason: Nausea and Vomiting Last Admin: 05/17/21 08:23 Dose: 4 mg Documented by: CRISTINA Pharmacy Consult (Consult Rx Perform Med Rec) 1 each MISCELLANE ONCE PRN PRN Reason: Consult order Sodium Chloride (0.9 % Sodium Chloride Flush 3 Ml Syringe) 3 ml IVFLUSH QSHIFT COUNTS INCLUDE 234 BEDS AT THE [facility] Last Admin: 05/18/21 01:11 Dose: Not Given Documented by: EUGENE Non-Admin Reason: IV Running Labs CBC & Chem 7: 05/18/21 05:25 05/18/21 05:25 Labs: Laboratory Results - last 24 hr 05/17/21 05/18/21 05/18/21 08:27 05:25 05:25 MCV 103.2 H MCH 34.1 H MCHC 33.0 RDW 14.0 Plt Count 87 L MPV 9.9 Immature Gran % (Auto) 0.3 Neut % (Auto) 64.9 Lymph % (Auto) 21.6 [place] % (Auto) 11.6 H Eos % (Auto) 1.6 Baso % (Auto) 0.0 Lymph # (Auto) 0.7 L [place] # (Auto) 0.4 Eos # (Auto) 0.1 Baso # (Auto) 0.0 Abs Immat Gran (auto) 0.01 Absolute Neuts (auto) 2.1 Absolute Nucleated RBC 0.000 Nucleated RBC % (auto) 0.0 Anion Gap 10 L 10 L Estim Creat Clear Calc 103.9 112.5 Estimated GFR > 60 > 60 Random Glucose 89 88 Calcium 9.6 9.3 Assessment and Plan (1) Herpes zoster: Status: Acute Assessment and Plan: This is a 60 yo M with a history of Mantle Cell lymphoma, currently on oral chemo, HTN, Depression/Anxiety who presents to the hospital with worsening rash consistent with Herpes Zoster in an immunocompromised patient. He will be admitted for IV antivirals. 1. Herpes Zoster -- in an immunocompromised patient Continue IV acyclovir - 10mg/KG - day #3 ID consult appreciated -- to continue IV acyclovir until crusted over continue contact/airborne precautions 2. HTN Norvasc 3. Anxiety/Depression continue his baseline meds 4. Mantle Cell lymphoma hold Brukinsa (to prevent further neutropenia) 5. Thrombocytopenia monitor Full Code DVT pptx -- mechanical due to low platelets Quality Stroke Does the patient have a stroke diagnosis?: No VTE Prior VTE?: No VTE Risk Level:: Medical - moderate - high VTE Device Contraindication: Treatment Not Indicated VTE Drug Contraindication: N/A - Med Ordered
[2021-05-18] MEDS: 0.9 % Sodium Chloride Flush 3 ML SYRINGE IVFLUSH ×2 (09:23→23:32)
[2021-05-18] MEDS: amLODIPine Besylate 10 MG TABLET PO (09:23)
[2021-05-18] MEDS: Escitalopram Oxalate 20 MG TABLET PO (09:23)
[2021-05-18] MEDS: Lactated Ringers 1,000 ML 100 ML IVCONT (12:11)
[2021-05-18] MEDS: Enoxaparin Sodium 40 MG/0.4 ML SYRINGE SUBCUT (16:28)
[2021-05-18] MEDS: diphenhydrAMINE HCL 25 MG TABLET 50 MG PO (22:20)
[2021-05-19] VITALS: BP 117/68; PULSE 72; RESP 17; TEMP 37; O2SAT 94
[2021-05-19 04:00] VITALS: BP 127/72; PULSE 80; RESP 17; TEMP 36.6; O2SAT 97
[2021-05-19 05:41] LABS: Basophils Percent Auto 0.3 % (0-2); Imm Gran Abs Auto 0.01 X10*3/uL (0.00-0.03); Imm Gran Pct Auto 0.3 % (0.0-0.4); MANUAL DIFF FLAG SCAN; PLT CLUMP 1; SCAN SMEAR FLAG 1
[2021-05-19 05:43] LABS: Anion Gap 11 (12-20); Blood Urea Nitrogen 10 mg/dL (9-16); Calcium 9.7 mg/dL (8.4-10.2); Carbon Dioxide 25 mmol/L (22-29); Chloride 109 mmol/L (96-108); Creatinine Clr Calc Pharmacy 112.5; Eosinophils Absolute Auto 0.1 X10*3/uL (0.0-0.4); Estimated Glomerular Filt Rate > 60; Glucose Random 97 mg/dL (60-115); Hemoglobin 11.3 g/dl (14.0-18.0); Lymphocytes Absolute Auto 0.7 X10*3/uL (1.2-4.9); Lymphocytes Percent Auto 18.4 % (20-40); Mean Corpuscular HGB Conc 34.2 g/dl (31.0-36.0); Mean Corpuscular Hemoglobin 34.7 pg (27.0-33.0); Mean Corpuscular Volume 101.2 fL (80.0-98.0); Monocytes Absolute Auto 0.4 X10*3/uL (0.1-1.2); Monocytes Percent Auto 10.8 % (2-11); Neutrophils Absolute Auto 2.4 x10*3/uL (2.0-8.3); Neutrophils Percent Auto 68.2 % (45-73); Potassium 3.5 mmol/L (3.3-5.1); Red Blood Count 3.26 X10*6/uL (4.60-5.80); Red Cell Distribution Width 13.9 % (11.0-16.0); Sodium 141 mmol/L (135-145); White Blood Count 3.5 X10*3/uL (4.8-10.8)
[2021-05-19 05:57] LABS: Platelet Count 91 X10*3/uL (160-400)
[2021-05-19 06:04] LABS: SLIDE REVIEW VERIFIED
[2021-05-19] MEDS: Omeprazole 20 MG CAPSULE.DR PO (06:45)
[2021-05-19 07:31] VITALS: BP 134/76; PULSE 77; RESP 20; TEMP 36; O2SAT 96
--- NOTE | 2021-05-19 07:48 | P.PNIM_ITS ---
Subjective Subjective Date of Service: 05/19/21 Interval History: seen and examined this Am denies fevers pain improving reports no new lesions Review of Systems negative except HPI Physical Exam Vital Signs: Vital Signs: Last Vital Signs Temp 96.8 F 05/19/21 07:31 Pulse 77 05/19/21 07:31 Resp 20 05/19/21 07:31 BP 134/76 05/19/21 07:31 Pulse Ox 96 05/19/21 07:31 Body Mass Index 27.2 Const: Other: General - no acute distress, appears comfortable Cardiovascular - regular rate and rhythm, S1-S2 Lungs - normal respiratory effort, clear to auscultation bilaterally, no wheezing Abdomen - soft, nontender, no rebound or guarding Extremities - no edema bilaterally Neuro - awake and alert, no focal deficits Skin - no new lesions appreciated Objective Data Active Medications Acetaminophen (Acetaminophen 325 Mg Tablet) 650 mg PO Q6H PRN PRN Reason: Pain, Mild (Pain Scale 1-3) Last Admin: 05/17/21 17:34 Dose: 650 mg Documented by: CRISTINA Amlodipine Besylate (Amlodipine Besylate 10 Mg Tablet) 10 mg PO DAILY [facility]; P rotocol Last Admin: 05/18/21 09:23 Dose: 10 mg Documented by: [place] Diphenhydramine HCl (Diphenhydramine Hcl 25 Mg Tablet) 50 mg PO BEDTIME PRN PRN Reason: Insomnia Last Admin: 05/18/21 22:20 Dose: 50 mg Documented by: ARPITA Enoxaparin Sodium (Enoxaparin Sodium 40 Mg/0.4 Ml Syringe) 40 mg SUBCUT Q24H [facility] Last Admin: 05/18/21 16:28 Dose: 40 mg Documented by: [place] Escitalopram Oxalate (Escitalopram Oxalate 20 Mg Tablet) 20 mg PO DAILY [facility] Last Admin: 05/18/21 09:23 Dose: 20 mg Documented by: [place] Acyclovir Sodium 800 mg/ (Sodium Chloride) 266 mls @ 266 mls/hr IV Q8H [facility] Last Infusion: 05/19/21 06:34 Dose: 0 mls/hr Documented by: JOSH Ibuprofen (Ibuprofen 600 Mg Tablet) 600 mg PO Q8H PRN PRN Reason: Pain, Moderate (Pain Scale 4-6 Last Admin: 05/16/21 20:35 Dose: 600 mg Documented by: EUGENE Morphine Sulfate (Morphine Sulfate 2 Mg/Ml Cartridge) 2 mg IVPUSH Q4H PRN; Protocol PRN Reason: Pain, Severe (Pain Scale 7-10) Last Admin: 05/18/21 01:11 Dose: 2 mg Documented by: EUGENE Patient Own Medication ( Zanubrutinib 80 Mg) 4 each PO DAILY [facility] Last Admin: 05/16/21 10:21 Dose: Not Given Documented by: NADIA Non-Admin Reason: hold order Omeprazole (Omeprazole 20 Mg Capsule.Dr) 20 mg PO DAILY@0630 [facility] Last Admin: 05/19/21 06:45 Dose: 20 mg Documented by: JOSH Ondansetron HCl (Ondansetron Hcl 4 Mg/2 Ml Vial) 4 mg IVPUSH Q8H PRN PRN Reason: Nausea and Vomiting Last Admin: 05/17/21 08:23 Dose: 4 mg Documented by: CRISTINA Pharmacy Consult (Consult Rx Perform Med Rec) 1 each MISCELLANE ONCE PRN PRN Reason: Consult order Sodium Chloride (0.9 % Sodium Chloride Flush 3 Ml Syringe) 3 ml IVFLUSH QSVTFT [facility] Last Admin: 05/18/21 23:32 Dose: 3 ml Documented by: JOSH Labs CBC & Chem 7: 05/19/21 05:10 05/19/21 05:10 Labs: Laboratory Results - last 24 hr 05/19/21 05/19/21 05:10 05:10 MCV 101.2 H MCH 34.7 H MCHC 34.2 RDW 13.9 Plt Count 91 L MPV 10.0 Immature Gran % (Auto) 0.3 Neut % (Auto) 68.2 Lymph % (Auto) 18.4 L [place] % (Auto) 10.8 Eos % (Auto) 2.0 Baso % (Auto) 0.3 Lymph # (Auto) 0.7 L [place] # (Auto) 0.4 Eos # (Auto) 0.1 Baso # (Auto) 0.0 Abs Immat Gran (auto) 0.01 Absolute Neuts (auto) 2.4 Absolute Nucleated RBC 0.000 Nucleated RBC % (auto) 0.0 Smear Tech's Comments VERIFIED Anion Gap 11 L Estim Creat Clear Calc 112.5 Estimated GFR > 60 Random Glucose 97 Calcium 9.7 Assessment and Plan (1) Herpes zoster: Status: Acute Assessment and Plan: 60 yo M with a history of Mantle Cell lymphoma, currently on oral chemo, HTN, Depression/Anxiety who presents to the hospital with worsening rash consistent with Herpes Zoster in an immunocompromised patient. He will be admitted for IV antivirals. 1. Herpes Zoster -- in an immunocompromised patient Continue IV acyclovir - 10mg/KG - day #4 ID consult appreciated -- to continue IV acyclovir until crusted over, presently not yet fully crusted continue contact/airborne precautions 2. HTN Norvasc 3. Anxiety/Depression continue his baseline meds 4. Mantle Cell lymphoma hold Brukinsa (to prevent further neutropenia) 5. Thrombocytopenia monitor Full Code DVT pptx -- mechanical due to low platelets, out of bed and ambulate Quality Stroke Does the patient have a stroke diagnosis?: No VTE Prior VTE?: No VTE Risk Level:: Medical - moderate - high VTE Device Contraindication: Treatment Not Indicated VTE Drug Contraindication: N/A - Med Ordered
[2021-05-19] MEDS: Escitalopram Oxalate 20 MG TABLET PO (09:22)
[2021-05-19] MEDS: amLODIPine Besylate 10 MG TABLET PO (09:22)
[2021-05-19] MEDS: 0.9 % Sodium Chloride Flush 3 ML SYRINGE IVFLUSH (09:22)
--- NOTE | 2021-05-19 10:30 | P.DS_ITS ---
DS: Providers Provider Date of Service: 05/19/21 Date of admission: 05/15/21 12:51 Primary care physician: Dilip Rivera MD Consults: 05/15/21 12:53 Consult to Infectious Diseases Routine Consulting Provider: Apple Sánchez Reason for consultation: zoster, immunecompromised DS: Diagnosis Discharge Diagnosis (1) Herpes zoster: Status: Acute DS: Summary Hospital Course Hospital Course: Chief Complaint: Shingles This is a 60 yo M with a PMH as outlined below who presents to urgent care for complaints of a rash on his neck, LUE, left chest wall. The patient is immuncompromised (being actively treated for Mantle Cell lymphoma at [facility] - s/p stem cell transplant in September 2020). He reports that 05/10 (), he was working outdoors and later in the day, he felt some discomfort on his neck/pos terior ear region and thought he had developed a blister. He thought that maybe it was poison Marge and did not make much of it. However, by Friday the rash had begun to Spread and so he sought medical attention. Friday he went called his oncologist and subsequently went to [facility] where he awaited 20 hours for admission and so began calling the local hospitals to see what the weight times were like. He subsequently presented here. He reports that was prescribed Acylovir by the [facility] providers and has taken it for the last 24 hours, but reports the rash is continuing to spread. He reports discomfort more than pain. He denies any fevers or chills. In regards to his cancer diagnosis, reports he underwent stem cell transplant in September 2020 and is on oral chemotherapuetic agent currently. He reports he has been in contact with his oncology team at [facility] and has been told to hold his cancer meds until his zoster resolves. Upon arrival to the ED, patient was noted to have vesicular rash (see pictures below). He underwent ocular testing to rule out herpes ophthalmicus in the ED. His case was discussed with [facility] coure: patient was admited and treated with IV Acylcovir and now lesion have crusted and will therefore discharge to complete oral Valacyclovir Time Spent with Patient Time attestation: Total time spent providing and/or coordinating discharge services: Discharge coordination time: Greater than 30 minutes Quality: Stroke Does the patient have a stroke diagnosis?: No Physical Exam Vital Signs: Vital Signs: Last Vital Signs Temp 96.8 F 05/19/21 07:31 Pulse 77 05/19/21 07:31 Resp 20 05/19/21 07:31 BP 134/76 05/19/21 07:31 Pulse Ox 96 05/19/21 07:31 Body Mass Index 27.2 Const: Other: today, see admission picuture on H and P General: AO X 3, no acute distress Resp: CTA bilateral CVS: S1,S2,RRR GI: +BS, NT, no distention Skin: see above Neuro: motor grossly intact Psych: appropriate affect DS: Data Data Completed and Pending Labs on day of discharge: Laboratory Results - last 24 hr 05/19/21 05/19/21 05:10 05:10 WBC 3.5 L RBC 3.26 L Hgb 11.3 L Hct 33.0 L MCV 101.2 H MCH 34.7 H MCHC 34.2 RDW 13.9 Plt Count 91 L MPV 10.0 Immature Gran % (Auto) 0.3 Neut % (Auto) 68.2 Lymph % (Auto) 18.4 L [place] % (Auto) 10.8 Eos % (Auto) 2.0 Baso % (Auto) 0.3 Lymph # (Auto) 0.7 L [place] # (Auto) 0.4 Eos # (Auto) 0.1 Baso # (Auto) 0.0 Abs Immat Gran (auto) 0.01 Absolute Neuts (auto) 2.4 Absolute Nucleated RBC 0.000 Nucleated RBC % (auto) 0.0 Smear Tech's Comments VERIFIED Sodium 141 Potassium 3.5 Chloride 109 H Carbon Dioxide 25 Anion Gap 11 L BUN 10 Creatinine 0.73 Estim Creat Clear Calc 112.5 Estimated GFR > 60 Random Glucose 97 Calcium 9.7 Discharge Plan Discharge Anticipated Discharge Date/Time: 05/19/21 10:44 Patient Disposition: Home, Self-Care Discharge Diagnosis: Zoster Referrals: Dilip Rivera MD [Primary Care Provider] - 1 Week Discharge Medications: Continued citalopram 40 mg tablet 40 mg PO DAILY RF: 0 diphenhydramine HCl 50 mg Tablet 50 mg PO BEDTIME PRN (Reason: Insomnia) RF: 0 valacyclovir 1 gram tablet 1,000 mg PO TID RF: 0 amlodipine 10 mg tablet 10 mg PO DAILY RF: 0 Brukinsa 80 mg capsule 320 mg PO DAILY RF: 0 Discharge Orders: Discharge Order (Routine); Ordered 05/19/21 Ordered By: Mark Lopez Diet: advance to usual diet Activity on Discharge: As tolerated Stand Alone Forms: Patient Portal Discharge page Care Plan Goals: Full recovery from Zoster Health Concerns: Zoster Plan of Treatment: Take Avalcyclovir as recommended and follow up with your Doctor in a week Assessment: as above Discharge Date/Time: 05/19/21 12:40
[2021-05-19 11:41] VITALS: BP 142/80; PULSE 79; RESP 18; TEMP 37.1; O2SAT 95
--- NOTE | 2021-05-19 16:33 | MHC.CM.PN ---
PT DISCHARGED HOME SELF CARE W/FAMILY FOR TRANSPORT
== END 2021-05-19 12:40 | disposition home or self-care (01) | DRG 383 ==
LOC: HO.ED 12:39 → HO.EDOVER 13:05 → HO.S3 05-16 00:27
PROVIDERS: Physician Assistant; Admitting Provider Family Medicine; Emergency Provider Emergency Medicine Emergency Medical Services; PCP Internal Medicine Hematology & Oncology; Visit Provider Internal Medicine
DX: B02.9 Zoster without complications (principal); C83.10 Mantle cell lymphoma, unspecified site; D69.6 Thrombocytopenia, unspecified; F41.9 Anxiety disorder, unspecified; F32.A Depression, unspecified; Z98.84 Bariatric surgery status; Z20.822 Contact with and (suspected) exposure to COVID-19; Z79.899 Other long term (current) drug therapy
CPT/HCPCS: 36415; 80048; 80053; 85025; 85027; 85610; 85730; 87635; 96365; 96375; 99285; J0133; J1650; J2270; J2405; Q0163